=== PATIENT | female | born 1940 | race Caucasian/White ===

== ENCOUNTER 2016-10-27 10:09 | Day surgery (SDC) | payer OTHER ==
[2016-10-09 10:58] VITALS: BMI 45.0
--- NOTE | 2016-10-09 11:43 | PAT Medication Instructions ---
Service Date October 09, 2016. Current Home Medication List Albuterol Inhaler (Ventolin Inhaler), 2 PUFFS INH QID PRN for PRN Alprazolam (Xanax), 0.5 MG PO DAILY PRN for PRN Ascorbic Acid (Vitamin C *), 500 MG PO QAM Aspirin Enteric Coated (Ecotrin Or Generic), 81 MG PO HS Atenolol (Tenormin), 50 MG PO BID B-Complex Vitamins (Vitamin B Complex), 1 TAB PO QAM Dicyclomine Hcl (Bentyl), 10 MG PO BID Diphenoxylate/Atropine (Lomotil), 1 TAB PO Q4H PRN for PRN Duloxetine Hcl (Cymbalta), 60 MG PO QPM Ergocalciferol (Vitamin D 61175 Unit), 50,000 UNIT PO WK Meclizine Hcl (Meclizine Hcl), 25 MG PO TID PRN for PRN Metaxalone (Skelaxin), 1 TAB PO TID PRN for Pain Pantoprazole (Protonix), 40 MG PO QAM Ropinirole (Requip), 1 MG PO HS Rosuvastatin Calcium (Crestor), 20 MG PO HS [Multaq], 400 MG PO BID Medication Instructions For Your Scheduled Surgery - Hold the following medications the morning of surgery: [Multaq], 400 MG PO BID Metaxalone (Skelaxin), 1 TAB PO TID PRN for Pain Meclizine Hcl (Meclizine Hcl), 25 MG PO TID PRN for PRN Ergocalciferol (Vitamin D 94475 Unit), 50,000 UNIT PO WK Diphenoxylate/Atropine (Lomotil), 1 TAB PO Q4H PRN for PRN B-Complex Vitamins (Vitamin B Complex), 1 TAB PO QAM Dicyclomine Hcl (Bentyl), 10 MG PO BID Ascorbic Acid (Vitamin C *), 500 MG PO QAM - Take the following medications the morning of surgery with a sip of water: Pantoprazole (Protonix), 40 MG PO QAM Atenolol (Tenormin), 50 MG PO BID Alprazolam (Xanax), 0.5 MG PO DAILY PRN for PRN (if needed) Albuterol Inhaler (Ventolin Inhaler), 2 PUFFS INH QID PRN for PRN (if needed) - Hold the following medications as scheduled the night before surgery: Ropinirole (Requip), 1 MG PO HS - Take the following medications as scheduled the night before surgery: [Multaq], 400 MG PO BID Rosuvastatin Calcium (Crestor), 20 MG PO HS Metaxalone (Skelaxin), 1 TAB PO TID PRN for Pain (if needed) Meclizine Hcl (Meclizine Hcl), 25 MG PO TID PRN for PRN (if needed) Duloxetine Hcl (Cymbalta), 60 MG PO QPM Diphenoxylate/Atropine (Lomotil), 1 TAB PO Q4H PRN for PRN (if needed) Dicyclomine Hcl (Bentyl), 10 MG PO BID Alprazolam (Xanax), 0.5 MG PO DAILY PRN for PRN (if needed) Albuterol Inhaler (Ventolin Inhaler), 2 PUFFS INH QID PRN for PRN If you have any questions please call us at [phone] (Shanique Sanderson PA-C) or [phone] or [phone]
[2016-10-09 12:12] LABS: BASO % 0.4 %; BASO ABS # 0.02 K/uL (0-0.2); COMPLETE YES; EOS % 3.2 %; HEMATOCRIT 36.2 % (37-47); IG% 0.2 %; LYMPH % 25.6 %; LYMPH ABS # 1.36 K/uL (1.2-3.4); MEAN CELL VOLUME 93.8 fL (80-100); MEAN CORPUSCULAR HEMOGLOBIN 30.1 pg (25-34); MONO % 8.5 %; NEUT % 62.1 %; PLATELET COUNT 179 K/uL (130-400); RED BLOOD COUNT 3.86 M/uL (4.2-5.4); WHITE BLOOD COUNT 5.31 K/uL (4.8-10.8)
[2016-10-09 12:17] LABS: URINE APPEARANCE CLEAR (CLEAR); URINE BILIRUBIN NEG (NEG); URINE COLOR YELLOW; URINE EPITHELIAL CELL AUTO 0-5 /lpf (0-5); URINE NITRITE POS (NEG); URINE SPECIFIC GRAVITY 1.017 (1.000-1.030); UROBILINOGEN NEG (NEG)
--- NOTE | 2016-10-09 12:30 | DIAGNOSTIC IMAGING REPORT ---
CHEST 2 VIEWS ROUTINE HISTORY: Preop. COMPARISON: Chest 07/30/2014. FINDINGS: The heart is normal in size. No pleural effusions. No pneumothorax. Possible 8 mm nodular density within the right midlung zone. Left shoulder prosthesis. Lumbar spinal fusion hardware. IMPRESSION: Possible 8 mm nodular density within the right midlung zone. Shallow oblique views of the chest are recommended for confirmation. Electronically signed by: Ministerio Guzman M.D. 10/09/2016 12:29 PM Dictated Date/Time: 10/09/2016 12:26 PM
[2016-10-09 12:37] LABS: MANUAL MICROSCOPIC REQUIRED? NO; REVIEW REQ? NO
[2016-10-09 12:57] LABS: BUN/CREATININE RATIO 18.7 (10-20); CREATININE 1.1 mg/dl (0.60-1.20); POTASSIUM 4.3 mmol/L (3.5-5.1)
[2016-10-09 13:21] LABS: CALCIUM 9.7 mg/dl (8.5-10.1)
[~2016-10-27] VITALS: Ht 162.6 cm; Wt 119.1 kg
[~2016-10-27 10:09] MED LIST: ALBUAER19 INH; ALPR-411 PO; ASCA500 PO; ASPI81TA21 PO; ATEN50TA8 PO; B-COTAB18 PO; CYM/30 PO; DICY10CA55 PO; DIPH-416 PO; ERGO500037 PO; LACTATED RINGER'S 1000ML 1,000 ML IV SCH; MECL1TAB42 PO; META-38 PO; Multaq PO; PANT40TA PO; ROPI1TAB PO; ROSU20TA PO
[2016-10-27 10:20] VITALS: BP 143/65; PULSE 72; TEMP 36.8; O2SAT 96; Ht 162.6 cm; Wt 119.1 kg
[2016-10-27] MEDS ORDERED: IMMODIUM PO (10:43)
[2016-10-27] MEDS ORDERED: CEFAZOLIN IV 2,000 MG/60 ML D5W IV ONE (10:43)
--- NOTE | 2016-10-27 10:58 | History & Physical Bridge Note ---
H&P Re-Evaluation Bridge Note: I have examined the patient, reviewed the History & Physical and in the interval since the performance of the History & Physical I have noted the following changes of clinical significance: No changes noted
--- NOTE | 2016-10-27 10:59 | History and Physical ---
History & Physical Date Oct 27, 2016. Chief Complaint L SI joint pain History of Present Illness The patient is a 76 year old female with complaints of Additional History Hepatic Disease: No Endocrine Disorder: No Kidney Disease: No Hypertension: No Heart Disease: No Bleeding Tendencies: No Infectious Diseases: No Allergies Coded Allergies: Dabigatran (Verified Allergy, Unknown, STOMACH PAINS, 10/27/16) Fluconazole (Verified Allergy, Unknown, UNKNOWN, 10/27/16) Food (Verified Allergy, Unknown, DATES-HIVES, 10/27/16) Hydroxyzine (Verified Allergy, Unknown, UNKNOWN, 10/27/16) Ibuprofen (Verified Allergy, Unknown, UNKNOWN, 10/27/16) Nadolol (Verified Allergy, Unknown, UNKNOWN, 10/27/16) Pentazocine (Verified Allergy, Unknown, UNKNOWN, 10/27/16) Piroxicam (Verified Allergy, Unknown, UNKNOWN, 10/27/16) Aspartame (Verified Adverse Reaction, Unknown, UNKNOWN, 10/27/16) Atorvastatin (Verified Adverse Reaction, Unknown, NUMBNESS, 10/27/16) NUMBNESS Home Medications Scheduled Ascorbic Acid (Vitamin C *), 500 MG PO QAM Aspirin Enteric Coated (Ecotrin Or Generic), 81 MG PO HS Atenolol (Tenormin), 50 MG PO BID B-Complex Vitamins (Vitamin B Complex), 1 TAB PO QAM Dicyclomine Hcl (Bentyl), 10 MG PO BID Duloxetine Hcl (Cymbalta), 60 MG PO QPM Ergocalciferol (Vitamin D 76443 Unit), 50,000 UNIT PO WK Pantoprazole (Protonix), 40 MG PO QAM Ropinirole (Requip), 1 MG PO HS Rosuvastatin Calcium (Crestor), 20 MG PO HS [Multaq], 400 MG PO BID Scheduled PRN Albuterol Inhaler (Ventolin Inhaler), 2 PUFFS INH QID PRN for PRN Alprazolam (Xanax), 0.5 MG PO DAILY PRN for PRN Meclizine Hcl (Meclizine Hcl), 25 MG PO TID PRN for PRN Metaxalone (Skelaxin), 1 TAB PO TID PRN for Pain [Immodium], PO for Diarrhea Physical Examination Skin: warm/dry, no rash Eyes: normal inspection, EOMI, sclerae normal ENT: normal ENT inspection, pharynx normal Head: normocephalic, atraumatic Neck: supple, no adenopathy, trachea midline Respiratory/Chest: lungs clear, normal breath sounds, no respiratory distress Cardiovascular: regular rate, rhythm, no edema, no murmur Abdomen / GI: normal bowel sounds, non tender Back: normal inspection Extremities: normal inspection, normal range of motion Neurologic/Psych: no motor/sensory deficits, alert, normal reflexes, oriented x 3 Diagnosis L sacralilitis Plan of Treatment L SI joint fusion
[2016-10-27] MEDS ORDERED: FENTANYL CITRATE INJ 50 MCG/1 ML 2 ML VIAL ONE ×2 (11:00→11:50)
[2016-10-27] MEDS ORDERED: MIDAZOLAM HCL 1 MG/ML 2ML VIAL ONE (11:00)
[2016-10-27] MEDS ORDERED: BUPIVACAINE/EPINEPHRINE 0.5% MPF 1:200,000 30 ML VIAL ONE (11:24)
[2016-10-27] MEDS ORDERED: BACITRACIN 50000 UNIT VIAL ONE (11:25)
[2016-10-27] MEDS ORDERED: SODIUM CHLORIDE 0.9% PF 50 ML VIAL ONE (11:48)
[2016-10-27] MEDS ORDERED: HYDROmorphone INJ 2 MG/ML SYR/VIAL ONE (11:51)
[2016-10-27] MEDS ORDERED: OXYC-57 PO (12:33)
--- NOTE | 2016-10-27 12:34 | Discharge Instructions ---
Discharge Instructions Date of Service Oct 27, 2016. Admission Reason for Admission: Sacro Iliac Dysfunction Discharge Discharge Diagnosis / Problem: L sacralilitis Discharge Goals Goal(s): Improve function Activity Recommendations Activity Limitations: per Instructions/Follow-up section Shower/Bathe: may shower/bathe in 3 days Weightbearing Status: Left toe touch . Instructions / Follow-Up Instructions / Follow-Up F/U in two weeks as scheduled TTWB LLE with walker to ambulate Current Hospital Diet Patient's current hospital diet: Discharge Diet Recommended Diet: Regular Diet Procedures Procedures Performed: Left Sacroiliac Joint Fusion with 3 screws Pending Studies Studies pending at discharge: no Medical Emergencies . Who to Call and When: Medical Emergencies: If at any time you feel your situation is an emergency, please call 911 immediately. . Non-Emergent Contact Non-Emergency issues call your: Primary Care Provider . "Provider Documentation" section prepared by Shaun Hoyos. . VTE Core Measure Inpt VTE Proph given/why not?: Abi Mena, CASSIDY's
[2016-10-27] MEDS ORDERED: HYDROmorphone INJ 1 MG/ML SYR IV PRN ×2 (12:45→13:00)
[2016-10-27] MEDS ORDERED: ACETAMINOPHEN 650 MG SUPP PR PRN (12:45)
[2016-10-27] MEDS ORDERED: OXYCODONE HCL IR 5 MG TAB (IMMEDIATE RELEASE) PO PRN (12:45)
[2016-10-27] MEDS ORDERED: ACETAMINOPHEN 325 MG TAB PO PRN (12:45)
[2016-10-27] MEDS ORDERED: LIDOCAINE HCL 2% 2 ML VIAL (20MG/ML) ONE (12:51)
[2016-10-27] MEDS ORDERED: ROCURONIUM BROMIDE 10 MG/ML 5 ML VIAL ONE (12:51)
[2016-10-27] MEDS ORDERED: GLYCOPYRROLATE INJ 0.2 MG/ML VIAL ONE (12:51)
[2016-10-27] MEDS ORDERED: ONDANSETRON INJ 2 MG/ML 2 ML VIAL ONE (12:51)
[2016-10-27] MEDS ORDERED: PROPOFOL IV EMULSION 10 MG/ML 20 ML VIAL IV ONE (12:51)
[2016-10-27] MEDS ORDERED: NEOSTIGMINE METHYLSULFATE 1 MG/ML 10ML VIAL ONE (12:51)
[2016-10-27] MEDS ORDERED: DEXAMETHASONE SOD INJ 4 MG/ML VIAL ONE (12:51)
[2016-10-27] MEDS ORDERED: ATROPINE SULFATE 0.1 MG/ML 5ML SYR IV PRN (13:00)
[2016-10-27] MEDS ORDERED: EpHEDrine SULFATE INJ 50 MG/ML AMP IV PRN (13:00)
[2016-10-27] MEDS ORDERED: PROMETHAZINE HCL INJ 6.25 MG in SODIUM CHLORIDE 0.9% 50ML 50 ML IV PRN (13:00)
[2016-10-27] MEDS ORDERED: FENTANYL CITRATE INJ 50 MCG/1 ML 2 ML VIAL IV PRN (13:00)
[2016-10-27] MEDS ORDERED: ONDANSETRON INJ 2 MG/ML 2 ML VIAL IV PRN (13:00)
--- NOTE | 2016-10-27 13:22 | DIAGNOSTIC IMAGING REPORT ---
FLUOROSCOPIC IMAGES OF THE PELVIS CLINICAL HISTORY: Left sacroiliac joint fusion COMPARISON STUDY: No previous studies for comparison. Fluoroscopy time: 3 minutes and 2 seconds. FINDINGS: 3 fluoroscopic images demonstrate 3 screws which fixate the left sacroiliac joint. Lumbar spine fusion hardware is partially imaged. IMPRESSION: Fluoroscopic images demonstrating left sacroiliac joint fusion. Electronically signed by: Michael Kraft M.D. 10/27/2016 1:20 PM Dictated Date/Time: 10/27/2016 1:19 PM
--- NOTE | 2016-10-27 13:42 | Anesthesiology Progress Note ---
Anesthesia Post Op Note Date & Time Oct 27, 2016 at 13:43 Vital Signs Pain Intensity: 0 Vital Signs Past 12 Hours Date Time Temp Pulse Resp B/P (MAP) Pulse Ox O2 Delivery O2 Flow Rate FiO2 10/27/16 13:25 36.1 66 20 146/69 96 Room Air 10/27/16 13:15 68 20 139/57 96 Room Air 10/27/16 13:05 70 20 144/55 100 Mask 10 10/27/16 12:55 74 20 170/62 100 Mask 10 10/27/16 12:45 36.7 74 14 185/75 99 Mask 10 10/27/16 10:20 36.8 72 20 143/65 (91) 96 Room Air Notes Mental Status: alert / awake / arousable, participated in evaluation Pt Amnestic to Procedure: Yes Nausea / Vomiting: adequately controlled Pain: adequately controlled Airway Patency, RR, SpO2: stable & adequate BP & HR: stable & adequate Hydration State: stable & adequate Anesthetic Complications: no major complications apparent
[2016-10-27 14:30] VITALS: BP 129/64; PULSE 73; TEMP 36.2; O2SAT 97
--- NOTE | 2016-10-27 14:48 | OPERATIVE REPORT ---
DATE OF OPERATION: 10/27/2016 PREOPERATIVE DIAGNOSIS: Left sacroiliitis. POSTOPERATIVE DIAGNOSIS: Same. PROCEDURE PERFORMED: Left SI joint fusion with placement of 3 Globus hydroxyapatite coated slotted screws filled with Elsy bone grafting. SURGEON: Dr. Shaun Hoyos. ELECTRON TUBE ASSEMBLER: ROSELIA Delarosa. Due to the complex nature of the procedure, the entire surgery was performed with the audiology assistant of ROSELIA Delarosa. The clinical assistant, under direct supervision, was involved in the actual performance of all aspects of the surgical procedure including hemostasis, tissue retraction and incision, instrument management, patient positioning, and wound closure. ANESTHESIA: General. DISPOSITION: The patient awakened and taken to PACU in stable condition. HISTORY OF PATIENT'S PROBLEMS: A 76-year-old female well known to me presents with above-mentioned diagnosis. After failing an extensive course of nonoperative care, elected to undergo the above-mentioned procedure. Risks, benefits, pros, cons, and alternatives were outlined in detail preoperatively. DESCRIPTION OF PROCEDURE: The patient was met with preoperatively, the case discussed and all questions were addressed. At that point the patient was taken back to operative suite and after undergoing successful general endotracheal intubation via department of anesthesia, she was placed in prone position on Elver table with a chest pad and hip bolsters. All bony prominences were well padded and the eyes were inspected to ensure there was no external pressure upon them. At this point the left upper buttock was prepped and draped in normal sterile fashion. We verified adequate visualization and AP inlet, outlet, and lateral views of the pelvis. We then placed approximately 3 cm incision over the left upper buttock along the sacral slope. We then placed a guidewire through the incision to locate the outer table of the ilium, verified our position in AP, lateral planes and placed the guidewire across the SI joint just lateral aspect of the S1 foramina. This was then overdrilled using cannulas. We measured a 40 mm screw. Subsequently, a 40 mm slotted screw filled with locally harvested autograft and Elsy bone grafting was placed. After this was complete, we used the outrigger guide to place a second distal screw, this one using the same technique, this site was 35 mm in length, again filled with Elsy and locally harvested morselized autograft. After this screw was placed a third screw was placed distally using Ismael outrigger guide, this time 30 mm in length. Again, locally harvested morcellized autograft and Elsy bone grafting used to fill the slotted component of the screw. After fixation the incision was copiously irrigated, verified our positions in AP and lateral, inlet outlet planes. The incision was then closed with 2-0 Vicryl in the fascia, 4-0 Monocryl for final skin closure. Steri-Strips and sterile dressing placed. The patient was awakened and taken to PACU in stable condition. I attest to the content of the Intraoperative Record and any orders documented therein. Any exception s are noted below.
== END 2016-10-27 14:35 | disposition home or self-care (01) ==
LOC: C.ACU 10:09
PROVIDERS: ATTEND Orthopaedic Surgery Orthopaedic Surgery of the Spine
DX: M46.1 Sacroiliitis, not elsewhere classified (principal); Z79.82 Long term (current) use of aspirin; Z79.899 Other long term (current) drug therapy

== ENCOUNTER 2017-07-23 18:51 | Emergency (ER) | payer OTHER ==
[~2017-07-23 18:51] MED LIST changes: -DIPH-416 PO; +IMMODIUM PO; -LACTATED RINGER'S 1000ML 1,000 ML IV SCH
[2017-07-23 18:57] VITALS: TEMP 36.4; Ht 154.9 cm
[2017-07-23] MEDS ORDERED: ONDANSETRON INJ 2 MG/ML 2 ML VIAL IV STA (19:08)
[2017-07-23] MEDS ORDERED: KETOROLAC TROMETHAMINE 30 MG/ML VIAL IV STA (19:08)
[2017-07-23] MEDS ORDERED: SODIUM CHLORIDE 0.9% 1000ML 1,000 ML IV STA (19:08)
[2017-07-23] MEDS ORDERED: FENTANYL CITRATE INJ 50 MCG/1 ML 2 ML VIAL IV STA (19:08)
[2017-07-23 19:55] LABS: BASO % 0.1 %; BASO ABS # 0.01 K/uL (0-0.2); EOS ABS # 0.14 K/uL (0-0.5); HEMATOCRIT 38.2 % (37-47); HEMOGLOBIN 12.6 g/dL (12.0-16.0); IG# 0.01 K/uL (0.00-0.02); LYMPH % 20.8 %; LYMPH ABS # 1.48 K/uL (1.2-3.4); MEAN CELL VOLUME 92.3 fL (80-100); MEAN CORPUSCULAR HEMOGLOBIN 30.4 pg (25-34); MEAN PLATELET VOLUME 10.2 fL (7.4-10.4); MONO % 6.2 %; MONO ABS # 0.44 K/uL (0.11-0.59); NEUT % 70.8 %; NEUT ABS # 5.05 K/uL (1.4-6.5); PLATELET COUNT 183 K/uL (130-400); RED CELL DISTRIBUTION WIDTH CV 13.2 % (11.5-14.5); RED CELL DISTRIBUTION WIDTH SD 44.6 fL (36.4-46.3); WHITE BLOOD COUNT 7.13 K/uL (4.8-10.8)
[2017-07-23 20:11] LABS: ALBUMIN 3.6 gm/dl (3.4-5.0); ALT/SGPT 28 U/L (12-78); AST/SGOT 30 U/L (15-37); BLOOD UREA NITROGEN 25 mg/dl (7-18); CALCIUM 9.1 mg/dl (8.5-10.1); CARBON DIOXIDE 24 mmol/L (21-32); CREATININE 1.29 mg/dl (0.60-1.20); GLUCOSE 110 mg/dl (70-99); LIPASE 115 U/L (73-393); POTASSIUM 3.6 mmol/L (3.5-5.1); SODIUM 141 mmol/L (136-145)
[2017-07-23 20:14] LABS: ALKALINE PHOSPHATASE 110 U/L (45-117); TOTAL PROTEIN 7.5 gm/dl (6.4-8.2)
--- NOTE | 2017-07-23 20:31 | DIAGNOSTIC IMAGING REPORT ---
ABD/PELVIS WITHOUT FOR STONE CT DOSE: 1704.47 mGy.cm HISTORY: Flank pain flank pain, left TECHNIQUE: Multiaxial CT images of the abdomen and pelvis were performed without the use of intravenous and oral contrast according to the standard department stone protocol. A dose lowering technique was utilized adhering to the principles of ALARA. COMPARISON STUDY: None. FINDINGS: Lung bases are clear. Evidence for prior cholecystectomy. Configuration of liver spleen and pancreas appear unremarkable. Moderate cortical scarring of the kidneys bilaterally. 2 mm nonobstructing mid pole right renal calcification. Mild left hydroureteronephrosis with several small left renal parapelvic cyst. 2 mm partially obstructing calculus left ureteral vesicle junction. No additional calcifications are identified. Postoperative changes including laminectomy and fusion throughout the lumbar spine. 3 left sacral retention screws. No acute bony abnormality. Nonobstructive bowel pattern. IMPRESSION: 1. 2 mm partially obstructing calculus left ureterovesical junction. 2. Mild left hydroureteronephrosis. 3. Nonobstructing bowel pattern. 4. No additional acute abnormality of the abdomen or pelvis. 5. Postoperative lumbar spine changes as noted. The above report was generated using voice recognition software. It may contain grammatical, syntax or spelling errors. Electronically signed by: Jay Martino M.D. 07/23/2017 8:29 PM Dictated Date/Time: 07/23/2017 8:26 PM
[2017-07-23] MEDS ORDERED: OXYC-57 PO (21:41)
[2017-07-23] MEDS ORDERED: CEFTRIAXONE SOD INJ 1 GM ADDVIAL IV STA (21:42)
--- NOTE | 2017-07-23 21:42 | EMERGENCY ROOM VISIT NOTE ---
History Report prepared by Ibrahima: Ronnell Álvarez Under the Supervision of: Esha GranadosO. First contact with patient: 18:59 Chief Complaint: ABDOMINAL PAIN Stated Complaint: BACK ACHE, SIDE ACHE, PRESSURE IN BOWELS History of Present Illness The patient is a 77 year old female who presents to the Emergency Room with complaints of persistent left flank pain since 1300 today. She notes that she had the feeling to pass a stool around that time, though she could not relieve herself. She reports that she was able to go later on in the day, though the pain has remained. She describes the pain as pressure in her bowels, though it is radiating to her back and abdomen. She currently rates her pain a 10/10 in severity. She notes it feels like she needs to pass a stool. She notes that she has felt similar pain to these symptoms during child . She recently had an endoscopy 10 days ago. She has a history of back and hip surgery. She reports normal kidney function. Source of History: patient Onset: 1300 today Position: other (left flank) Symptom Intensity: 10/10 Timing: other (persistent) Associated Symptoms: + abdominal pain, + back pain Review of Systems See HPI for pertinent positives & negatives. A total of 10 systems reviewed and were otherwise negative. Past Medical & Surgical Medical Problems: (1) Atrial fibrillation (2) Bronchitis (3) DJD (degenerative joint disease) (4) H/O endoscopy (5) Kidney stone (6) Lumbar stenosis with neurogenic claudication Surgical Problems: (1) H/O prior ablation treatment (2) H/O total knee replacement (3) H/O: hysterectomy (4) History of back surgery (5) History of cholecystectomy (6) History of hip surgery Family History Cancer Diabetes mellitus Gallbladder disease Heart disease Hypertension Kidney disease Kidney stones Social History Smoking Status: Never Smoker Smokeless Tobacco Use: No Alcohol Use: none Drug Use: none Marital Status: Housing Status: lives with significant other Occupation Status: unemployed Current/Historical Medications Scheduled Ascorbic Acid (Vitamin C *), 500 MG PO QAM Aspirin Enteric Coated (Ecotrin Or Generic), 81 MG PO HS Atenolol (Tenormin), 50 MG PO BID B-Complex Vitamins (Vitamin B Complex), 1 TAB PO QAM Dicyclomine Hcl (Bentyl), 10 MG PO BID Duloxetine Hcl (Cymbalta), 60 MG PO QPM Ergocalciferol (Vitamin D 83821 Unit), 50,000 UNIT PO WK Pantoprazole (Protonix), 40 MG PO QAM Ropinirole (Requip), 1 MG PO HS Rosuvastatin Calcium (Crestor), 20 MG PO HS [Multaq], 400 MG PO BID Scheduled PRN Albuterol Inhaler (Ventolin Inhaler), 2 PUFFS INH QID PRN for PRN Alprazolam (Xanax), 0.5 MG PO DAILY PRN for PRN Meclizine Hcl (Meclizine Hcl), 25 MG PO TID PRN for PRN Metaxalone (Skelaxin), 1 TAB PO TID PRN for Pain Oxycodone/Acetaminophen 5MG/325MG (Percocet 5MG/325MG), 1 TAB PO Q6H PRN for Pain [Immodium], PO for Diarrhea Allergies Coded Allergies: Fluconazole (Verified Allergy, Unknown, UNKNOWN, 10/27/16) Food (Verified Allergy, Unknown, DATES-HIVES, 10/27/16) Hydroxyzine (Verified Allergy, Unknown, UNKNOWN, 10/27/16) Ibuprofen (Verified Allergy, Unknown, UNKNOWN, 10/27/16) Nadolol (Verified Allergy, Unknown, UNKNOWN, 10/27/16) Pentazocine (Verified Allergy, Unknown, UNKNOWN, 10/27/16) Piroxicam (Verified Allergy, Unknown, UNKNOWN, 10/27/16) Aspartame (Verified Adverse Reaction, Unknown, UNKNOWN, 10/27/16) Atorvastatin (Verified Adverse Reaction, Unknown, NUMBNESS, 10/27/16) NUMBNESS Dabigatran (Verified Adverse Reaction, Unknown, STOMACH PAINS, 10/27/16) Physical Exam Vital Signs Date Time Temp Pulse Resp B/P (MAP) Pulse Ox O2 Delivery O2 Flow Rate FiO2 07/23/17 20:46 77 16 158/56 95 Room Air 07/23/17 18:57 36.4 72 18 193/93 93 Room Air Physical Exam CONSTITUTIONAL/VITAL SIGNS: Reviewed / noted above. GENERAL: Non-toxic in appearance. INTEGUMENTARY: Warm, dry, and [place]. HEAD: Normocephalic. EYES: without scleral icterus or trauma. ENT/OROPHARYNX: clear and moist. LYMPHADENOPATHY/NECK: Is supple without lymphadenopathy or meningismus. RESPIRATORY: Lungs clear and equal. CARDIOVASCULAR: Regular rate and rhythm. GI/ABDOMEN: Soft, tenderness to palpation in LLQ. No organomegaly or pulsatile mass. No rebound or guarding. Normal bowel sounds. EXTREMITIES: Warm and well perfused. BACK: No CVA tenderness. NEUROLOGICAL: Intact without focal deficits. PSYCHIATRIC: normal affect. MUSCULOSKELETAL: Normally developed with good muscle tone. Medical Decision & Procedures ER Provider Diagnostic Interpretation: Radiology results as stated below per my review and radiologist interpretation: ABD/PELVIS WITHOUT FOR STONE CT DOSE: 1704.47 mGy.cm HISTORY: Flank pain flank pain, left TECHNIQUE: Multiaxial CT images of the abdomen and pelvis were performed without the use of intravenous and oral contrast according to the standard department stone protocol. A dose lowering technique was utilized adhering to the principles of ALARA. COMPARISON STUDY: None. FINDINGS: Lung bases are clear. Evidence for prior cholecystectomy. Configuration of liver spleen and pancreas appear unremarkable. Moderate cortical scarring of the kidneys bilaterally. 2 mm nonobstructing mid pole right renal calcification. Mild left hydroureteronephrosis with several small left renal parapelvic cyst. 2 mm partially obstructing calculus left ureteral vesicle junction. No additional calcifications are identified. Postoperative changes including laminectomy and fusion throughout the lumbar spine. 3 left sacral retention screws. No acute bony abnormality. Nonobstructive bowel pattern. IMPRESSION: 1. 2 mm partially obstructing calculus left ureterovesical junction. 2. Mild left hydroureteronephrosis. 3. Nonobstructing bowel pattern. 4. No additional acute abnormality of the abdomen or pelvis. 5. Postoperative lumbar spine changes as noted. The above report was generated using voice recognition software. It may contain grammatical, syntax or spelling errors. Electronically signed by: Jay Martino M.D. 07/23/2017 8:29 PM Dictated Date/Time: 07/23/2017 8:26 PM Laboratory Results 07/23/17 19:35 Red Blood Count 4.14, Mean Corpuscular Volume 92.3, Mean Corpuscular Hemoglobin 30.4, Mean Corpuscular Hemoglobin Concent 33.0, Mean Platelet Volume 10.2, Neutrophils (%) (Auto) 70.8, Lymphocytes (%) (Auto) 20.8, Monocytes (%) (Auto) 6.2, Eosinophils (%) (Auto) 2.0, Basophils (%) (Auto) 0.1, Neutrophils # (Auto) 5.05, Lymphocytes # (Auto) 1.48, Monocytes # (Auto) 0.44, Eosinophils # (Auto) 0.14, Basophils # (Auto) 0.01 07/23/17 19:35 Test 07/23/17 19:35 07/23/17 21:00 White Blood Count 7.13 K/uL (4.8-10.8) Red Blood Count 4.14 M/uL (4.2-5.4) Hemoglobin 12.6 g/dL (12.0-16.0) Hematocrit 38.2 % (37-47) Mean Corpuscular Volume 92.3 fL (80-100) Mean Corpuscular Hemoglobin 30.4 pg (25-34) Mean Corpuscular Hemoglobin Concent 33.0 g/dl (32-36) Platelet Count 183 K/uL (130-400) Mean Platelet Volume 10.2 fL (7.4-10.4) Neutrophils (%) (Auto) 70.8 % Lymphocytes (%) (Auto) 20.8 % Monocytes (%) (Auto) 6.2 % Eosinophils (%) (Auto) 2.0 % Basophils (%) (Auto) 0.1 % Neutrophils # (Auto) 5.05 K/uL (1.4-6.5) Lymphocytes # (Auto) 1.48 K/uL (1.2-3.4) Monocytes # (Auto) 0.44 K/uL (0.11-0.59) Eosinophils # (Auto) 0.14 K/uL (0-0.5) Basophils # (Auto) 0.01 K/uL (0-0.2) RDW Standard Deviation 44.6 fL (36.4-46.3) RDW Coefficient of Variation 13.2 % (11.5-14.5) Immature Granulocyte % (Auto) 0.1 % Immature Granulocyte # (Auto) 0.01 K/uL (0.00-0.02) Anion Gap 9.0 mmol/L (3-11) Estimated GFR () 45.9 Estimated GFR (Non- 39.6 BUN/Creatinine Ratio 19.5 (10-20) Calcium Level 9.1 mg/dl (8.5-10.1) Total Bilirubin 0.4 mg/dl (0.2-1) Direct Bilirubin 0.2 mg/dl (0-0.2) Aspartate Amino Transf (AST/SGOT) 30 U/L (15-37) Alanine Aminotransferase (ALT/SGPT) 28 U/L (12-78) Alkaline Phosphatase 110 U/L (45-117) Total Protein 7.5 gm/dl (6.4-8.2) Albumin 3.6 gm/dl (3.4-5.0) Lipase 115 U/L (73-393) Urine Color YELLOW Urine Appearance CLEAR (CLEAR) Urine pH 5.0 (4.5-7.5) Urine Specific [place] 1.020 (1.000-1.030) Urine Protein NEG (NEG) Urine Glucose (UA) NEG (NEG) Urine Ketones NEG (NEG) Urine Occult Blood 3+ (NEG) Urine Nitrite NEG (NEG) Urine Bilirubin NEG (NEG) Urine Urobilinogen NEG (NEG) Urine Leukocyte Esterase TRACE (NEG) Urine WBC (Auto) 1-5 /hpf (0-5) Urine RBC (Auto) 10-30 /hpf (0-4) Urine Hyaline Casts (Auto) 1-5 /lpf (0-5) Urine Epithelial Cells (Auto) 10-20 /lpf (0-5) Urine Bacteria (Auto) 2+ (NEG) Laboratory results as stated above per my review. Medications Administered Medications (Trade) Dose Ordered Sig/Brock Route Start Time Stop Time Status Last Admin Dose Admin Sodium Chloride 1,000 ml @ 999 mls/hr Q1H1M STAT IV 07/23/17 19:08 07/23/17 20:08 DC 07/23/17 19:52 999 MLS/HR Fentanyl Citrate (Fentanyl Inj) 100 mcg NOW STAT IV 07/23/17 19:08 07/23/17 19:10 DC 07/23/17 19:52 100 MCG Ondansetron HCl (Zofran Inj) 4 mg NOW STAT IV 07/23/17 19:08 07/23/17 19:11 DC 07/23/17 19:52 4 MG Ketorolac Tromethamine (Toradol Inj) 30 mg NOW STAT IV 07/23/17 19:08 07/23/17 19:09 DC 07/23/17 19:52 30 MG Ceftriaxone Sodium (Rocephin Inj) 1 gm NOW STAT IV 07/23/17 21:42 07/23/17 21:43 DC 07/23/17 21:42 1 GM ED Course 1901: Previous medical records were reviewed. The patient was evaluated in room A11B. A complete history and physical examination was performed. 1907: Ordered Toradol 30 mg IV, Zofran 4 mg IV, Fentanyl Citrate 100 mcg IV, and Sodium Chloride 1,000 ml @ 999 mls/hr IV 2141: Ordered Rocephin 1 gm IV 2144: Ordered Oxycodone/Acetaminophen 1 homepack PO 2147: I reassessed the patient at this time. She is feeling better and resting comfortably. I discussed the results and treatment plan with the patient. I answered all pertaining questions that she had. She expressed understanding and verbalized agreement. The patient will be discharged home. Medical Decision Differential considered: pancreatitis, hepatitis, or acute cholecystitis, AAA, UTI, pyelonephritis, kidney stones, appendicitis, diverticulitis, shingles, bowel obstruction mesenteric ischemia, intussusception, and hernia. This is a 77-year-old female who presents to the ED with a chief complaint of left-sided flank pain radiating to her groin. The patient states that her symptoms started at 1 PM today. She states that his symptoms worsening through the day. She has had kidney stones in the past and states that it feels somewhat similar. Denies any vomiting or fevers or urinary symptoms prior to onset of symptoms today. The patient's vital signs reveal hypertension. She is afebrile. There is no CVA tenderness. She has mild discomfort with palpation left lower quadrant. A CT scan reveals a 2 mm left UVJ stone with mild hydronephrosis on the left. A CBC is normal, BUN is 25 and creatinine is 1.29. Initial urinalysis with clean catch was contaminated. A cath specimen was also somewhat contaminated. There is no clear urinary tract infection. She was given IV dose of Rocephin awaiting cultures. She was told the results. She is felt to be stable for discharge. Medication Reconcilliation Current Medication List: was personally reviewed by me Blood Pressure Screening Patient's blood pressure: Elevated blood pressure Blood pressure disposition: Elevated BP felt to be situational Impression Primary Impression: Renal colic on left side Additional Impression: Ureteral stone Scribe Attestation The scribe's documentation has been prepared under my direction and personally reviewed by me in its entirety. I confirm that the note above accurately reflects all work, treatment, procedures, and medical decision making performed by me. Departure Information Dispostion Home / Self-Care Prescriptions Oxycodone/Acetaminophen 5MG/325MG (PERCOCET 5MG/325MG) Tab 1 TAB PO Q6H Y for Pain, #20 TAB Prov: Rajendra Vivar D.O. 07/23/17 Referrals No Doctor, Assigned (PCP) Forms Call Back Authorization, HOME CARE DOCUMENTATION FORM, IMPORTANT VISIT INFORMATION Patient Instructions Kidney Stones, My [facility] Additional Instructions Follow-up with your doctor for further care and evaluation in 1-2 days. Return to the emergency department for worsening or new symptoms or any concerns. You have been examined and treated today on an emergency basis only. This is not a substitute for, or an effort to provide, complete comprehensive medical care. It is impossible to recognize and treat all injuries or illnesses in a single emergency department visit. It is therefore important that you follow up closely with your doctor. Call as soon as possible for an appointment. Percocet as prescribed. No driving within 6 hours of use. Do not take additional Tylenol while taking Percocet. Strain urine for stone. Problem Qualifiers
[2017-07-23] MEDS ORDERED: PERCOCET HOME PACK PO ONE (21:45)
[2017-07-23 22:00] VITALS: BP 146/72; PULSE 62; O2SAT 95
--- NOTE | 2017-07-26 15:33 | Pharmacy Progress Note ---
ED Pharmacist Culture FollowUp Date of Service: Jul 26, 2017. Patient with two strains of E. coli growing in urine clean catch. Discussed case with Dr. Vivar who originally saw the patient. Since the patient also had a kidney stone, it was decided to call the patient and if she was feeling no better or any worse, we would recommend returning for re-evaluation. If she was feeling better, then we would call in a prescription for cefdinir. I called patient and she stated she was feeling much better. I updated her on the results and on our medication plan. I also stressed that if she stopped improving or started to feel worse at any time, then she should return immediately for evaluation. The patient acknowledged understanding of this plan. I called in a prescription for cefdinir 300mg BID X 7 days to [facility] pharmacy at the patient's request. Case discussed with Dr. Vivar, who is the prescribing provider.
== END 2017-07-23 22:31 | disposition home or self-care (01) ==
LOC: C.EDB 18:52 → C.EDA 22:31
DX: N23 Unspecified renal colic (principal); N20.1 Calculus of ureter; I48.91 Unspecified atrial fibrillation; Z87.442 Personal history of urinary calculi; M48.062 Spinal stenosis, lumbar region with neurogenic claudication; Z80.9 Family history of malignant neoplasm, unspecified; Z83.3 Family history of diabetes mellitus; Z83.79 Family history of other diseases of the digestive system; Z82.49 Family history of ischemic heart disease and other diseases of the circulatory system; Z84.1 Family history of disorders of kidney and ureter; Z79.82 Long term (current) use of aspirin; Z79.899 Other long term (current) drug therapy; Z88.5 Allergy status to narcotic agent; Z88.8 Allergy status to other drugs, medicaments and biological substances; Z91.018 Allergy to other foods